=== PATIENT | female | born 1995 ===

== ENCOUNTER 2022-07-15 09:33 | Emergency (ER) | payer BC, OTHER ==
[~2022-07-15] VITALS: Ht 165.1 cm; Wt 50.8 kg
--- NOTE | 2022-07-15 09:43 | ED Lower Extremity ---
General Stated Complaint: RT ANKLE INJ Source: patient Exam Limitations: no limitations History of Present Illness Date Seen by Provider: Jul 15, 2022 Time Seen by Provider: 09:35 Initial Comments 27-year-old female with no pertinent past medical history coming in due to right ankle pain. She twisted it while on the trampoline last night. Pain is constan t, sharp, worse with movement, better with rest. Has not taken any medicine for it. Did drink vodka last night to help with the pain which was helpful. The pain is more on the lateral side. She says she has been unable to put really any weight on it. Otherwise denying any other acute complaints. LMP about a week ago Allergies and Home Medications Allergies Coded Allergies: No Known Drug Allergies (Unverified , 07/15/22) Patient Home Medication List Home Medication List Reviewed: Yes Ibuprofen (Ibuprofen) 600 Mg Tablet, 600 MG PO Q6H PRN for PAIN-MILD Prescribed by: LUIS ANTONIO FONSECA on 07/15/22 1001 Review of Systems Constitutional: No fever EENTM: no symptoms reported Respiratory: no symptoms reported Cardiovascular: no symptoms reported Gastrointestinal: no symptoms reported Genitourinary: no symptoms reported Musculoskeletal: see HPI Skin: no symptoms reported Psychiatric/Neurological: No Symptoms Reported All Other Systems Reviewed Negative Unless Noted: Yes Past Xtmoehy-Oadiir-Klfsqm Hx Patient Social History Substance use?: No Alcohol Use?: Yes Alcohol Frequency: Once in a while Past Medical History Surgeries: No Physical Exam Vital Signs Vital Signs - First Documented 07/15/22 09:36 Temp 36.5 Pulse 105 Resp 19 B/P (MAP) 148/91 (110) O2 Delivery Room Air Capillary Refill : Height, Weight, BMI Height: '" Weight: lbs. oz. kg; BMI Method: General Appearance: WD/WN, no apparent distress, other (laughing) HEENT: PERRL/EOMI, normal ENT inspection, pharynx normal Neck: non-tender, full range of motion, supple, normal inspection Cardiovascular: regular rate, rhythm, no edema, no murmur Respiratory: chest non-tender, lungs clear, normal breath sounds, no respiratory distress, no accessory muscle use Gastrointestinal: normal bowel sounds, non tender, soft; No distended, No guarding, No rebound Back: normal inspection Hips: bilateral hip non-tender, bilateral hip normal inspection, bilateral hip normal range of motion, bilateral hip no evidence of injury Legs: bilateral leg non-tender, bilateral leg normal inspection, bilateral leg normal range of motion, bilateral leg no evidence of injury Knees: bilateral knee non-tender (no pain over proximal fibula), bilateral knee normal inspection, bilateral knee normal range of motion, bilateral knee no evidence of injury Ankles: left ankle non-tender, left ankle normal inspection, left ankle normal range of motion, left ankle no evidence of injury; right ankle bone tenderness (lateral and medial malleoli), right ankle pain, right ankle soft tissue tenderness, right ankle swelling (and bruising to the lateral ankle, positive squeeze test above ankle) Feet: bilateral foot non-tender (No pain over proximal fifth metatarsal or Li sfranc), bilateral foot normal inspection, bilateral foot normal range of motion, bilateral foot no evidence of injury Neurologic/Tendon: normal sensation, normal motor functions Neurologic/Psychiatric: no motor/sensory deficits, alert, normal mood/affect Skin: normal color, warm/dry Lymphatic: no adenopathy Progress/Results/Core Measures Results/Orders My Orders Orders - LUIS ANTONIO FONSECA MD Ankle 3 View Right (07/15/22 09:39) Ibuprofen Tablet (Motrin Tablet) (07/15/22 09:45) Foot 3 View Right (07/15/22 09:45) Medications Given in ED Current Medications Medications Dose Ordered Sig/Leslie Route Start Time Stop Time Status Last Admin Dose Admin Ibuprofen 800 mg ONCE ONCE PO 07/15/22 09:45 07/15/22 09:46 DC 07/15/22 09:49 800 MG Vital Signs/I&O 07/15/22 09:36 Temp 36.5 Pulse 105 Resp 19 B/P (MAP) 148/91 (110) O2 Delivery Room Air Progress Progress Note : Progress Note 27-year-old female with above history coming into right ankle pain after twisting on trampoline last night. ABCs were intact and vitals were stable on presentation. Physical exam with swelling and bruising to the right lateral ankle. Maximal tenderness along the ATFL and CFL of the right ankle with some bony tenderness as well. X-ray of the right ankle and right foot on my interpretation with no fracture or dislocation. She was given ibuprofen for pain. Given an Jose bandage as well as basic ankle brace with crutches. She should follow-up with orthopedics as an outpatient Diagnostic Imaging Diagonstic Imaging: Xray (right foot and ankle) Comments NAME: [facility] REC#: [id number] PT STATUS: REG ER : 1995 PHYSICIAN: LUIS ANTONIO FONSECA MD ADMIT DATE: 07/15/22/ER FS Draft Date of Exam:07/15/22 ANKLE 3 VIEW RIGHT EXAMINATION: Right ankle radiographs, 3 views. COMPARISON: None. HISTORY: 27-year-old female, injury on trampoline. Right ankle and foot pain. FINDINGS: There is prominent soft tissue swelling adjacent of the distal fibula. The alignment of the ankle mortise is unremarkable. There is no tibiotalar joint effusion. There is no identified acute fracture. There is no identified radiopaque foreign body. IMPRESSION: 1. Prominent soft tissue swelling adjacent to the distal fibula without identified acute osseous abnormality. Dictated on workstation # [id number] Dict: 07/15/22 0956 Trans: 07/15/22 0957 CVB [id number] Interpreted by: KELIN CEDILLO MD Electronically signed by: [facility] [place], [place] NAME: [facility] REC#: [id number] PT STATUS: REG ER : 1995 PHYSICIAN: LUIS ANTONIO FONSECA MD ADMIT DATE: 07/15/22/ER FS Draft Date of Exam:07/15/22 FOOT 3 VIEW RIGHT EXAMINATION: Right foot radiographs, 3 views. COMPARISON: None. HISTORY: 27-year-old female, injury on trampoline. Right foot and ankle pain. FINDINGS: There is prominent soft tissue swelling adjacent to the distal fibula. There is normal variant congenital fusion of the fifth digit middle and distal phalanges. There is no identified acute fracture. There is no radiopaque foreign body. IMPRESSION: 1. No identified acute bony abnormality of the right foot. Dictated on workstation # [id number] Dict: 07/15/22 0957 Trans: 07/15/22 1000 CVB [id number] Interpreted by: KELIN CEDILLO MD Electronically signed by: Departure Impression Primary Impression: High ankle sprain Qualified Codes: S93.491A - Sprain of other ligament of right ankle, initial encounter Disposition: 01 HOME, SELF-CARE Condition: Stable Departure-Patient Inst. Decision time for Depature: 09:55 Referrals: GRAHAM VALENTINE NO,LOCAL PHYSICIAN (PCP) Primary Care Physician Patient Instructions: Ankle Sprain ED Add. Discharge Instructions: Fortunately nothing is broken. You do have an ankle sprain however which takes several weeks to months to get better. Use the crutches as needed until you are able to walk on it. It is not dangerous to walk on it, but it will be painful. Take ibuprofen 600 mg every 6 hours as needed for pain. You can get this [id number]. I also recommend icing it at least 3 times a day for 20 minutes each time for the next several days. Follow-up with Dannie Valentine, the orthopedist here in town in the next week or so if things are not starting to improve. Scripts Ibuprofen (Ibuprofen) 600 Mg Tablet 600 MG PO Q6H PRN for PAIN-MILD for 7 Days, #28 TAB Prov: LUIS ANTONIO FONSECA MD 07/15/22 Work/School Note: Work Release Form Date Seen in the Emergency Department: Jul 15, 2022 Return to Work: Jul 17, 2022 Restrictions: No Restrictions LUIS ANTONIO FONSECA MD Jul 15, 2022 09:43
[2022-07-15] MEDS ORDERED: IBUPROFEN 800 MG (MOTRIN) TAB PO ONE (09:45)
--- NOTE | 2022-07-15 09:58 | Diagnostic Imaging Report ---
EXAMINATION: Right ankle radiographs, 3 views. COMPARISON: None. HISTORY: 27-year-old female, injury on trampoline. Right ankle and foot pain. FINDINGS: There is prominent soft tissue swelling adjacent of the distal fibula. The alignment of the ankle mortise is unremarkable. There is no tibiotalar joint effusion. There is no identified acute fracture. There is no identified radiopaque foreign body. IMPRESSION: 1. Prominent soft tissue swelling adjacent to the distal fibula without identified acute osseous abnormality. Dictated by: Dictated on workstation # [id number]
--- NOTE | 2022-07-15 10:00 | Diagnostic Imaging Report ---
EXAMINATION: Right foot radiographs, 3 views. COMPARISON: None. HISTORY: 27-year-old female, injury on trampoline. Right foot and ankle pain. FINDINGS: There is prominent soft tissue swelling adjacent to the distal fibula. There is normal variant congenital fusion of the fifth digit middle and distal phalanges. There is no identified acute fracture. There is no radiopaque foreign body. IMPRESSION: 1. No identified acute bony abnormality of the right foot. Dictated by: Dictated on workstation # [id number]
[2022-07-15] MEDS ORDERED: IBUP-1773 PO (10:01)
[2022-07-15 10:05] VITALS: BP 131/72
== END 2022-07-15 10:05 | disposition home or self-care (01) ==
LOC: ER FS 09:36
DX: S93.401A Sprain of unspecified ligament of right ankle, initial encounter (principal); Z28.310 Unvaccinated for COVID-19; X50.1XXA Overexertion from prolonged static or awkward postures, initial encounter; Y93.44 Activity, trampolining
CPT/HCPCS: 73610; 73630